=== PATIENT | male | born 1985 | race Caucasian/White ===

== ENCOUNTER 2021-08-27 11:42 | Emergency (ER) | payer MEDICAID, SELFPAY ==
[2021-08-27 11:43] VITALS: BP 143/96; PULSE 101; RESP 18; TEMP 36.6; O2SAT 99; BMI 34.1
--- NOTE | 2021-08-27 11:55 | CT_ITS ---
PROCEDURE INFORMATION: Exam: CT Abdomen And Pelvis Without Contrast Exam date and time: 08/27/2021 11:55 AM Age: 36 years old Clinical indication: Abdominal pain; Patient HX: Left flank pain for 2 days. TECHNIQUE: Imaging protocol: Computed tomography of the abdomen and pelvis without contrast. Radiation optimization: All CT scans at this facility use at least one of these dose optimization techniques: automated exposure control; mA and/or kV adjustment per patient size (includes targeted exams where dose is matched to clinical indication); or iterative reconstruction. COMPARISON: No relevant prior studies available. FINDINGS: Liver: Hepatic steatosis Gallbladder and bile ducts: Normal. No calcified stones. No ductal dilation. Pancreas: Normal. No ductal dilation. Spleen: Normal. No splenomegaly. Adrenal glands: Normal. No mass. Kidneys and ureters: Severe hydronephrosis of the left kidney. The left collecting system is dilated 7 cm. No dilatation of the proximal left ureter. This may represent congenital left UPJ obstruction.. There is no evidence of renal or ureteral calcifications. Stomach and bowel: Unremarkable. No obstruction. No mucosal thickening. Appendix: Normal appendix Intraperitoneal space: Unremarkable. No free air. No significant fluid collection. Vasculature: Unremarkable. No abdominal aortic aneurysm. Lymph nodes: Unremarkable. No enlarged lymph nodes. Urinary bladder: Unremarkable as visualized. Reproductive: Unremarkable as visualized. Bones/joints: Unremarkable. No acute fracture. Soft tissues: Unremarkable. IMPRESSION: Severe hydronephrosis of the left kidney. The left collecting system is dilated 7 cm. No dilatation of the proximal left ureter. This may represent congenital left UPJ obstruction or UPJ obstruction from other etiology. Recommend urology consult..
--- NOTE | 2021-08-27 11:55 | [facility].EDGENADL ---
ED Disposition Clinical Impression: Elevated lipase, Hydronephrosis of left kidney Pancreatitis Qualifiers: Chronicity: acute Pancreatitis type: unspecified pancreatitis type Acute pancreatitis complication: no infection or necrosis Qualified Code(s): K85.90 - Acute pancreatitis without necrosis or infection, unspecified Disposition: Home, Self-Care Condition on Discharge: Good Additional Instructions: Return to the emergency department with any fevers, new, changing, or worsening symptoms. You need to follow-up with urology. We have referred you to the [facility] urology department and also put in a referral for the urology department here at [facility]. Please follow-up with your appointment as soon as possible. You also need to take cefdinir for the next 10 days.. Please continue to take this antibiotic for the next 10 days. Your lipase is also elevated which could mean that you have pancreatitis although you do not have symptoms of this at this time. Please follow-up with your primary care physician. You may need to have an ultrasound performed at this in the near future. Prescriptions: Cefdinir [Omnicef 300mg Capsule] 300 mg PO BID 10 Days #20 cap Prescription Printed Referrals: ProviderLibby MD [Primary Care Provider] - Nelson Marks MD [Staff Physician] - Time of Disposition: 13:59 - Critical Care Critical Care Time: No Attestation: On , the high probability of a clinically significant, sudden or life threatening deterioration of the following system(s) required my full and direct attention, intervention and personal management. The time I documented below is in addition to time spent performing reported procedures but includes the following listed in this critical care notation. Medical Decision Making - Medical Records Medical records reviewed: Yes: I reviewed the patient's medical records. - Ray Inquiry Pt receiving controlled substance: No Vital Signs: 08/27/21 11:43 08/27/21 14:15 Temperature 97.9 F 97.9 F Temperature Source Oral Oral Pulse Rate 82 Pulse Rate [Left Radial] 101 H Respiratory Rate 18 20 Blood Pressure 126/85 Blood Pressure [Right Arm] 143/96 H Blood Pressure Mean [Right Arm] 111 Blood Pressure Source Automatic Cuff Blood Pressure Source [Right Arm] Automatic Cuff Blood Pressure Position Sitting Blood Pressure Position [Right Arm] Sitting 02 Sat by Pulse Oximetry 99 Oxygen Delivery Method Room Air Room Air - Lab Data Lab Results 08/27/21 11:50: WBC 13.1 H, RBC 5.41, Hgb 16.7, Hct 49.6, MCV 91.7, MCH 30.9, MCHC 33.6, RDW 13.1, Plt Count 279, MPV 9.2, Neut % (Auto) 77.6, Lymph % (Auto) 13.8, Thayer % (Auto) 3.1, Eos % (Auto) 4.4, Baso % (Auto) 1.0, Neut # (Auto) 10.2 H, Lymph # (Auto) 1.8, Thayer # (Auto) 0.4, Eos # (Auto) 0.6 H, Baso # (Auto) 0.1 08/27/21 11:50: Sodium 137, Potassium 4.0, Chloride 101, Carbon Dioxide 26, Anion Gap 14.0, BUN 14, Creatinine 1.00, Estimated Creat Clear 156, Estimated GFR 85, Est GFR ( Amer) 102, Glucose 341 H, Calcium 9.1, Total Bilirubin 0.6, AST 47, ALT 74, Alkaline Phosphatase 103, Total Protein 8.1, Albumin 4.3, Globulin 3.8 H, Albumin/Globulin Ratio 1.1, Lipase 898 H 08/27/21 12:00: Urine Color Yellow, Urine Appearance Clear, Urine pH 6.0, Ur Specific [place] 1.025, Urine Protein Trace, Urine Glucose (UA) 3+, Urine Ketones Negative, Urine Blood Negative, Urine Nitrate Negative, Urine Bilirubin Negative, Urine Urobilinogen 0.2, Ur Leukocyte Esterase Negative, Urine RBC None, Urine WBC None, Ur Squamous Epith Cells Occasional, Urine Bacteria Trace Result diagrams: 08/27/21 11:50 08/27/21 11:50 Orders (Tests/Meds): ED MEDICATIONS Discontinued Medications Generic Name Dose Route Start Last Admin Trade Name Freq PRN Reason Stop Dose Admin Sodium Chloride 1,000 mls @ 999 mls/hr 08/27/21 12:00 08/27/21 12:02 Sod Chlor 0.9% 1000ml Bag IV 08/27/21 13:00 999 mls/hr .Q1H1M FROYLAN Administrati
[2021-08-27 12:03] LABS: Basophils # 0.1 K/mm3 (0-0.2); Eosinophils # 0.6 K/mm3 (0.0-0.4); Eosinophils % 4.4 % (0.1-12.0); Hematocrit 49.6 % (42.0-52.0); Hemoglobin 16.7 g/dL (14.1-18.0); Lymphocytes # 1.8 K/mm3 (0.7-4.5); Lymphocytes % 13.8 % (10-50); Mean Corpuscular HGB Conc 33.6 g/dL (31.8-35.4); Mean Corpuscular Hemoglobin 30.9 pg (27.0-31.2); Mean Corpuscular Volume 91.7 fl (80-94); Mean Platelet Volume 9.2 fl (7.4-10.4); Monocytes # 0.4 K/mm3 (0.1-1.0); Monocytes % 3.1 % (1.7-9.3); Neutrophils # 10.2 K/mm3 (1.8-7.8); Neutrophils % 77.6 % (37.0-80.0); Platelet Count 279 K/mm3 (142-424); Red Blood Count 5.41 M/mm3 (4.60-6.20); Red Cell Distribution Width 13.1 % (11.5-17.5); White Blood Count 13.1 K/mm3 (4.8-10.8)
[2021-08-27 12:07] LABS: Chloride 101 mmol/L (98-107); Sodium 137 mmol/L (136-145)
[2021-08-27 12:09] LABS: Alanine Aminotransferase 74 U/L (12-78); Alkaline Phosphatase 103 U/L (38-126); Aspartate Amino Transferase 47 U/L (17-59); Bilirubin,Total 0.6 mg/dl (0.2-1.3); Blood Urea Nitrogen 14 mg/dl (9-20); Carbon Dioxide 26 mmol/L (22.0-30.0); Creatinine Clearance Estimated 156 mL/min (50-200); Estimated Glomerular Filt Rate 85 ml/min (>60); GFR (African American) 102 ML/MIN (>60)
[2021-08-27 12:10] LABS: Albumin Level 4.3 g/dl (3.5-5.0); Albumin/Globulin Ratio 1.1 (1.1-1.8); Calcium 9.1 mg/dl (8.4-10.2); Globulin 3.8 g/dL (1.3-3.2); Glucose 341 mg/dl (74-100); Total Protein,Serum 8.1 g/dl (6.3-8.2)
[2021-08-27 12:10] LABS: Appearance,Urine CLEAR (Clear); Bilirubin,Urine Negative (Negative); Blood, Urine Negative (Negative); Color,Urine YELLOW (Yellow); Glucose,Urine (UA) 3+ (Negative); Ketones,Urine Negative (Negative); Leukocyte Esterase,Urine Negative (Negative); Nitrate,Urine Negative (Negative); Protein,Urine TRACE (Negative); Specific Gravity, Urine 1.025 (1.005-1.030); Urobilinogen,Urine 0.2 EU/dl (0.2)
[2021-08-27 12:11] LABS: Microscopic, Urine URINE MICROSCOPIC (MICROSCOPIC)
[2021-08-27 12:11] LABS: Lipase 898 U/L (23-300)
--- NOTE | 2021-08-27 12:11 | PC.NURSE ---
notified ER of critical lipase
[2021-08-27 12:39] LABS: Bacteria,Urine Trace /lpf; Squamous Epithelial Cell,Urine Occasional #/hpf (0-5)
--- NOTE | 2021-08-27 13:17 | PC.NURSE ---
On phone with MDs for urology consult.
--- NOTE | 2021-08-27 13:24 | PC.NURSE ---
on the phone with Dr. Martinez.
[2021-08-27 14:15] VITALS: BP 126/85; PULSE 82; RESP 20; TEMP 36.6; O2SAT 97
== END 2021-08-27 14:29 | disposition home or self-care (01) ==
PROVIDERS: Emergency Provider Emergency Medicine
DX: N13.30 Unspecified hydronephrosis (principal); K85.90 Acute pancreatitis without necrosis or infection, unspecified; R74.8 Abnormal levels of other serum enzymes
CPT/HCPCS: 74176; 80053; 81001; 83690; 85025; 87086; 99283; J2405

== ENCOUNTER → 2021-09-15 08:56 | Outpatient (CLI) | payer MEDICAID, SELFPAY | PROVIDERS: Visit Provider Nurse Practitioner | DX: Z20.822 Contact with and (suspected) exposure to COVID-19 (principal) | CPT/HCPCS: C9803; U0003; U0005 ==

== ENCOUNTER 2021-09-30 15:23 | Emergency (ER) | payer MEDICAID, SELFPAY ==
--- NOTE | 2021-09-30 16:41 | HMH.EDUTC ---
[facility] [place] Clinical Impression: Strep throat Disposition: Home, Self-Care Condition on Discharge: Good Instructions: DI for Strep Throat, Strep Throat Additional Instructions: Drink plenty of fluids. Take tylenol or ibuprofen for pain or fever. Take the medications as directed. Follow up with your regular doctor. GO TO THE ER FOR ANY WORSENING SYMPTOMS Throw your tooth brush away and get a new one. Prescriptions: Amoxicillin/Potassium Clav [Augmentin 875-125 Tablet] 1 tab PO Q12H 10 Days #20 tab Transmission Status: Pending to [facility] # predniSONE [Deltasone 10mg tablet] 10 mg PO BID 3 Days #6 tab Transmission Status: Pending to [facility] # Referrals: Provider,Referral, MD [Primary Care Provider] - Time of Disposition: 17:16 Medical Decision Making - Medical Records Medical records reviewed: No: I reviewed the patient's medical records. - Ray Inquiry Pt receiving controlled substance: No Vital Signs: 09/30/21 16:54 09/30/21 16:57 Temperature 98.6 F 98.6 F Temperature Source Oral Pulse Rate 111 H Pulse Rate [Left] 111 H Respiratory Rate 16 16 Blood Pressure 148/86 H Blood Pressure [Right Arm] 148/86 H Blood Pressure Mean [Right Arm] 106 02 Sat by Pulse Oximetry 97 - Lab Data Lab results reviewed: Yes: I reviewed the patient's lab results. Lab Results 09/30/21 16:48: Strep Scn Rapid Clinic Positive A [facility] [place] - General Stated complaint: strep throat Time Seen by Provider: 09/30/21 16:41 - History of Present Illness Provider Complaint: He c/o sore throat and fever since yesterday. He thinks that he has strep throat. - Related Data Previous Rx's Medication Instructions Recorded Cefdinir [Omnicef 300mg Capsule] 300 mg PO BID 10 Days #20 cap 08/27/21 Amoxicillin/Potassium Clav 1 tab PO Q12H 10 Days #20 tab 09/30/21 [Augmentin 875-125 Tablet] predniSONE [Deltasone 10mg tablet] 10 mg PO BID 3 Days #6 tab 09/30/21 Allergies Allergy/AdvReac Type Severity Reaction Status Date / Time No Known Allergies Allergy Verified 08/28/21 13:12 [facility] History - Hepatitis A Screen Attestation statement:: This patient has been screened for Hepatitis A risk factors. I have reviewed the patient's past medical history: Yes Medical History: Reports:: Asthma, Kidney Stones Other Surgeries: Yes: No Previous Surgery Amputation: No Fractures: No - Social History Smoking Status: Current every day smoker Tobacco Type: cigarettes # Packs/Day (cigarettes): 1 #Yrs smoked (if former smoker): 12 Alcohol Intake: never Substance Use Type: denies use Occupational Status: employed Family Hx:: Cancer, Diabetes, Stroke, Hypertension, Heart Attack ROS Obtained: Yes All systems reviewed & no additional complaints - Constitutional Constitutional: Reports as per HPI - Eyes Eyes: Denies eye discharge - ENT Ears, Nose, Mouth, and Throat: Reports as per HPI - Cardiovascular Cardiovascular: Denies chest pain - Respiratory Respiratory: Denies chest congestion, Reports cough, Denies dyspnea, Denies stridor, Denies wheezing - Gastrointestinal Gastrointestingal: Denies: abdominal pain, diarrhea, nausea, vomiting - Integumentary/Breasts Skin/Breast: Denies rash Physical Exam - General General appearance: alert, in no apparent distress - Head Head exam: atraumatic, normocephalic, normal inspection - Eye Eye exam: Present: normal appearance, PERRL, EOMI - ENT ENT exam: Present: mucous membranes moist, normal external ear exam - Expanded ENT Exam TM/Canal exam: Bilateral TM: erythema, bulging, effusion Nose exam: Absent: sinus tenderness Mouth exam: Present: normal external inspection, tongue normal. Absent: drooling Teeth exam: Present: normal inspection Throat exam: Present: tonsillar erythema, tonsillomegaly, tonsillar exudate. Absent: R peritonsillar mass, L peritonsillar mass, muffled voice - Ne
[2021-09-30 16:54] VITALS: BP 148/86; PULSE 111; RESP 16; TEMP 37; O2SAT 97; BMI 35.1
[2021-09-30 16:57] VITALS: BP 148/86; PULSE 111; RESP 16; TEMP 37
[2021-09-30 17:10] LABS: UTC Strep Screen (Rapid) Positive (Negative)
== END 2021-09-30 17:24 | disposition home or self-care (01) ==
PROVIDERS: Emergency Provider Nurse Practitioner Family
DX: J02.0 Streptococcal pharyngitis (principal); F17.210 Nicotine dependence, cigarettes, uncomplicated; J45.909 Unspecified asthma, uncomplicated
CPT/HCPCS: 87880; 99202; G0463

== ENCOUNTER → 2021-10-23 09:49 | Outpatient (CLI) | payer MEDICAID, SELFPAY | PROVIDERS: Visit Provider Nurse Practitioner | DX: Z20.822 Contact with and (suspected) exposure to COVID-19 (principal) | CPT/HCPCS: C9803; U0003; U0005 ==

== ENCOUNTER 2021-11-21 15:41 | Emergency (ER) | payer MEDICAID, SELFPAY ==
[2021-11-21 15:42] VITALS: BP 141/98; PULSE 104; RESP 18; TEMP 37.1; O2SAT 99; BMI 30.1
--- NOTE | 2021-11-21 16:04 | HMH.EDGENADL ---
ED Disposition Clinical Impression: Chronic back pain Qualifiers: Back pain location: thoracic back pain Back pain laterality: unspecified Qualified Code(s): M54.6 - Pain in thoracic spine; G89.29 - Other chronic pain Disposition: Home, Self-Care Condition on Discharge: Good Instructions: DI for Chronic Pain -- Adult Additional Instructions: follow up your urologist Referrals: Jj Rodriguez [Primary Care Provider] - Time of Disposition: 16:37 - Critical Care Critical Care Time: No Attestation: On 11/21/21, the high probability of a clinically significant, sudden or life threatening deterioration of the following system(s) required my full and direct attention, intervention and personal management. The time I documented below is in addition to time spent performing reported procedures but includes the following listed in this critical care notation. Medical Decision Making - Ray Inquiry Pt receiving controlled substance: No Vital Signs: 11/21/21 15:42 Temperature 98.7 F Temperature Source Oral Pulse Rate [Right Radial] 104 H Respiratory Rate 18 Blood Pressure [Right Arm] 141/98 H Blood Pressure Mean [Right Arm] 112 Blood Pressure Source [Right Arm] Automatic Cuff Blood Pressure Position [Right Arm] Sitting 02 Sat by Pulse Oximetry 99 Oxygen Delivery Method Room Air - Lab Data Lab Results 11/21/21 15:45: Urine Color Yellow, Urine Appearance Clear, Urine pH 6.0, Ur Specific [place] 1.025, Urine Protein Trace, Urine Glucose (UA) 2+, Urine Ketones Trace, Urine Blood Negative, Urine Nitrate Negative, Urine Bilirubin Negative, Urine Urobilinogen 0.2, Ur Leukocyte Esterase Negative Orders (Tests/Meds): ED MEDICATIONS Discontinued Medications Generic Name Dose Route Start Last Admin Trade Name Noéq PRN Reason Stop Dose Admin Oxycodone/Acetaminophen 1 each 11/21/21 15:55 11/21/21 16:16 Oxycodone 7.5mg W/Apap 325mg Tablet PO 11/21/21 15:56 1 each ONCE ONE Administration ORDERS Category Date Time Status Urinalysis and Microscopic Stat Lab 11/21/21 15:45 Results General Adult HPI - General Chief complaint: PAIN Stated complaint: L kidney pain Time Seen by Provider: 11/21/21 16:06 Mode of Arrival: Ambulatory Limitations: No Limitations Description of Symptoms (Recalled from ER Triage Doc. by RN): pt c/o L flank pain, pt reports has chronic kidney issues and is soon to have his kidney removed. - History of Present Illness HPI narrative: reports h/o chronic kidney pain say she has scheduled surgery in [facility] and is out of his hydrocodone, today askking for pain control while waiting on rx from urologist, no new symptoms Onset (ago): month(s) Location: back Radiation: non-radiation Severity: moderate Quality: stabbing Relieving factors: none Exacerbating factors: none Associated symptoms: denies other symptoms - Related Data Previous Rx's Medication Instructions Recorded Cefdinir [Omnicef 300mg Capsule] 300 mg PO BID 10 Days #20 cap 08/27/21 Amoxicillin/Potassium Clav 1 tab PO Q12H 10 Days #20 tab 09/30/21 [Augmentin 875-125 Tablet] predniSONE [Deltasone 10mg tablet] 10 mg PO BID 3 Days #6 tab 09/30/21 Allergies Allergy/AdvReac Type Severity Reaction Status Date / Time No Known Allergies Allergy Verified 08/28/21 13:12 [facility] History - Hepatitis A Screen Drug use history?: No High risk sexual behaviors?: No History of sexually transmitted infection?: No Currently employed?: No Childcare worker?: No Do you have indoor plumbing?: Yes Do you have electricity?: Yes Attestation statement:: This patient has been screened for Hepatitis A risk factors. Medical History: Reports:: Asthma, Kidney Stones Other Surgeries: Yes: No Previous Surgery Amputation: No Fractures: No - Social History Smoking Status: Current every day smoker Tobacco Type: cigarettes # Packs/Day (cigarettes): 1 #Yrs smoked (if former smoker): 12 Alcohol Intake:
[2021-11-21 16:07] LABS: Microscopic, Urine URINE MICROSCOPIC (MICROSCOPIC)
[2021-11-21 16:24] LABS: Appearance,Urine CLEAR (Clear); Bilirubin,Urine Negative (Negative); Blood, Urine Negative (Negative); Color,Urine YELLOW (Yellow); Glucose,Urine (UA) 2+ (Negative); Ketones,Urine TRACE (Negative); Leukocyte Esterase,Urine Negative (Negative); Nitrate,Urine Negative (Negative); Protein,Urine TRACE (Negative); Specific Gravity, Urine 1.025 (1.005-1.030); Urobilinogen,Urine 0.2 EU/dl (0.2)
[2021-11-21 16:49] VITALS: BP 151/81; PULSE 91; RESP 16; TEMP 37.1; O2SAT 97
== END 2021-11-21 16:49 | disposition home or self-care (01) ==
PROVIDERS: Emergency Provider Emergency Medicine; PCP Family Medicine
DX: R10.12 Left upper quadrant pain (principal); G89.29 Other chronic pain; N18.6 End stage renal disease; F17.210 Nicotine dependence, cigarettes, uncomplicated
CPT/HCPCS: 81001; 99282

== ENCOUNTER → 2021-12-08 13:16 | Outpatient (CLI) | payer MEDICAID, SELFPAY | PROVIDERS: Visit Provider Nurse Practitioner | DX: Z20.822 Contact with and (suspected) exposure to COVID-19 (principal) | CPT/HCPCS: C9803; U0003; U0005 ==